=== PATIENT | male | born 1975 | race Caucasian/White ===

== ENCOUNTER 2016-08-28 19:23 | Emergency (ER) | payer MEDICAID ==
[~2016-08-28] VITALS: Ht 170.2 cm; Wt 86.3 kg
[~2016-08-28 19:23] MED LIST: AMO500 PO; CETI10CA PO; IBUP-1542 PO; IBUP800T25 PO; ONDA4TAB35 PO; ONDA4TAB8 PO; SODI44SP11 NASAL
[2016-08-28 19:27] VITALS: Ht 170.2 cm; Wt 86.3 kg
--- NOTE | 2016-08-28 21:40 | RADRPT ---
PROCEDURE: XR Hand. CLINICAL INDICATION: Numbness. Finger pain for 1 week. Attention fourth and fifth digits TECHNIQUE: PA, oblique and lateral views of the right hand were obtained. COMPARISON: None available. FINDINGS: Mineralization is within normal limits. No fracture or osseous lesion is identified. Joint spaces are preserved. Soft tissues are unremarkable. No radiopaque foreign body is present. RPTAT:HJJR IMPRESSION: Unremarkable right hand series. Physician Randall Date Time Electronically viewed and signed by Lorenzo Schrader Physician on 08/28/2016 21:39 JR/
[2016-08-28] MEDS ORDERED: IBUP-1542 PO (21:48)
--- NOTE | 2016-08-28 21:55 | ERD ---
ER Documentation Chief Complaint Date/Time DATE: 08/28/16 TIME: 21:49 Chief Complaint RT HAND PAIN. DENIES CP OR SOB NO TRAUMA HPI Patient is a 40-year-old male who presents to the emergency department with right right hand pain 2 weeks. Patient states the pain is primarily in the distal aspect of his fourth and fifth digits. Patient states that the pain is constant, currently 9 out of 10. Patient has noted some swelling in the DIP joints and states that he "feels bumps" in these areas. Patient denies taking any ibuprofen. Patient states he occasionally has some numbness in the distal aspect of the fourth and fifth digits his right hand. Patient is able to move all his fingers without any difficulty. Denies any fever, chills, nausea, vomiting, chest pain, shortness of breath. 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 Patient denies any trauma. ROS All systems reviewed and are negative except as per history of present illness. Medications Home Meds Active Scripts Ibuprofen* (Motrin*) 600 Mg Tab, 600 MG PO Q6, #30 TAB Prov:NABILA GUTIERREZ PA-C 08/28/16 Cetirizine Hcl* (Zyrtec*) 10 Mg Capsule, 10 MG PO DAILY, #30 TAB.CHEW Prov:MARY MONTGOMERY NP 05/31/16 Ibuprofen* (Motrin*) 600 Mg Tab, 600 MG PO Q6H Y for PAIN AND OR ELEVATED TEMP, #30 TAB Prov:MARY MONTGOMERY NP 05/31/16 Amoxicillin* (Amoxicillin*) 500 Mg Cap, 500 MG PO TID for 10 Days, CAP Prov:MAYR MONTGOMERY NP 05/31/16 Sodium Chloride (Saline Nasal [place]) 45 Ml [place], 2 SPRAYS NASAL Q2H Y for NASAL CONGESTION, #1 BOTTLE Prov:DONIS POSADA. ALLIED HEALTH TEACHER 07/06/15 Ibuprofen* (Motrin*) 800 Mg Tab, 800 MG PO Q6H Y for PAIN AND OR ELEVATED TEMP, #30 TAB Prov:DONIS POSADA. ALLIED HEALTH TEACHER 07/06/15 Ibuprofen* (Motrin*) 600 Mg Tab, 600 MG PO Q8, #12 Prov:ZAHRA CARDOZA DO 03/20/15 Ondansetron Hcl* (Zofran*) 4 Mg Tablet, 4 MG PO Q8H Y for NAUSEA AND/OR VOMITING , #10 TAB Prov:ZAHRA CARDOZA DO 03/20/15 Ondansetron Hcl* (Zofran* ODT) 4 mg -ODT Tab.disper, 4 MG PO Q6 Y for NAUSEA AND /OR VOMITING, #10 TAB Prov:JHONY MARTE 12/20/14 Ibuprofen* (Motrin*) 800 Mg Tab, 800 MG PO Q6, #30 TAB Prov:JHONY MARTE 12/20/14 Allergies Allergies: Coded Allergies: No Known Allergy (Unverified , 03/20/15) PMhx/Soc Medical and Surgical Hx: pt denies Medical Hx History of Surgery: Yes (L ankle sx) Anesthesia Reaction: No Hx Neurological Disorder: No Hx Respiratory Disorders: No Hx Cardiac Disorders: No Hx Psychiatric Problems: No Hx Miscellaneous Medical Probl: No Hx Alcohol Use: No Hx Substance Use: No Hx Tobacco Use: No Physical Exam Vitals Vital Signs Date Time Temp Pulse Resp B/P Pulse Ox O2 Delivery O2 Flow Rate FiO2 08/28/16 22:28 98.3 88 16 121/66 98 Room Air 08/28/16 19:27 98.1 58 18 113/59 98 Physical Exam GENERAL: Well-developed, well-nourished male. Appears in no acute distress. HEAD: Normocephalic, atraumatic. EYES: Pupils are equally reactive bilaterally. EOMs grossly intact. No conjunctival erythema. ENT: Moist mucous membranes. No uvula deviation. No kissing tonsils. NECK: Supple. No meningismus. Normal range of motion of the neck. LUNG: Clear to auscultation bilaterally. No rhonchi, wheezing, rales or coarse breath sounds. HEART: Regular rate and rhythm. No murmurs, rubs or gallops. ABDOMEN: No scars, ecchymosis or rashes noted. Soft, nontender, and nondistended. Positive bowel sounds in all four quadrants. No rebound tenderness , no guarding. (-) McBurney's point tenderness. No CVA tenderness. BACK: No midline tenderness. EXTREMITIES: Equal pulses bilaterally. No peripheral clubbing, cyanosis or edema. No unilateral leg swelling. NEUROLOGIC: Alert and oriented. Moving all four extremities without any difficulty. Normal speech. Steady gait. SKIN: Normal color. Warm and dry. No rashes or lesions. RIGHT HAND: No deformity, erythema, ecchymosis. + Heberden nodes palpated of the 4th and 5th digits. Tender to palpation of these nodes. Skin intact. No bursal swelling. Full ROM of all fingers. Sensation intact to light touch. Neurovascularly intact. (Able to give thumbs up, make an ok sign, cross digits 2 and 3, thumb to pinky opposition. 2+ RP.) No snuffbox tenderness. Nontender region of the wrist, forearm. Normal range of motion of the shoulder, elbow and wrist. Procedures/MDM ED COURSE: The patient was stable throughout ED course. I kept the patient and/or family informed of laboratory and diagnostic imaging results throughout the ED course. DIAGNOSTIC IMAGING: Read by radiologist. DIAGNOSTIC IMAGING REPORT Patient: NAYE THORNTON : 1975 Age: 40 Sex: M MR #: [id number] DOS: 08/28/162005 Ordering MD: NABILA GUTIERREZ PA-C Location: [facility] Room/Bed: PROCEDURE: XR Hand. CLINICAL INDICATION: Numbness. Finger pain for 1 week. Attention fourth and fifth digits TECHNIQUE: PA, oblique and lateral views of the right hand were obtained. COMPARISON: None available. FINDINGS: Mineralization is within normal limits. No fracture or osseous lesion is identified. Joint spaces are preserved. Soft tissues are unremarkable. No radiopaque foreign body is present. RPTAT:HJJR IMPRESSION: Unremarkable right hand series. Physician Randall Date Time Electronically viewed and signed by Physician Randall on 08/28/2016 21:39 JR/ CC: NABILA GUTIERREZ PA-C MEDICAL DECISION MAKING: This is a 40-year-old male who presents with pain of his right hand. Pain is primarily in the 4th and 5th digits over the DIP joints. Vital signs were reviewed. Patient was afebrile. Right hand XR was unremarkable. Given these findings, the patients presentation is most consistent with finger pain. Given presence of Heberden's nodes and frequent use of hands given that patient is a chef's assistant, patient may have osteoarthritis.I have a much lower clinical concern for dislocation, carpal fracture, scaphoid fracture, metacarpal fracture, phalanx fracture, Boxer's fracture, trigger finger, jammed finger, subungual hematoma, osteomyelitis or compartment syndrome. Unable to rule out rheumatoid arthritis at this time. PRESCRIPTIONS: Ibuprofen DISCHARGE: At this time, patient is stable for discharge and outpatient management. RICE therapy and ROM exercises were advised to avoid stiffness. I have instructed the patient to follow-up with his/her primary care physician in 1-2 days. I have discussed with the patient the possibility of needing to see an orthopedics pediatric physician/ pearl fisherman for further workup and imaging if the pain persists. I have instructed the patient to promptly return to the ER for any new or worsening symptoms including increased pain, swelling, redness, warmth or fever. The patient and/or family expressed understanding of and agreement with this plan. All questions were answered. Home care instructions were provided. Departure Diagnosis: Primary Impression: Finger pain, right Condition: Stable Patient Instructions: Sprain Finger Referrals: [facility] YOU HAVE RECEIVED A MEDICAL SCREENING EXAM AND THE RESULTS INDICATE THAT YOU DO NOT HAVE A CONDITION THAT REQUIRES URGENT TREATMENT IN THE EMERGENCY DEPARTMENT. FURTHER EVALUATION AND TREATMENT OF YOUR CONDITION CAN WAIT UNTIL YOU ARE SEEN IN YOUR DOCTORS OFFICE WITHIN THE NEXT 1-2 DAYS. IT IS YOUR RESPONSIBILITY TO MAKE AN APPOINTMENT FOR FOLOW-UP CARE. IF YOU HAVE A PRIMARY DOCTOR --you should call your primary doctor and schedule an appointment IF YOU DO NOT HAVE A PRIMARY DOCTOR YOU CAN CALL OUR PHYSICIAN REFERRAL HOTLINE AT IF YOU CAN NOT AFFORD TO SEE A PHYSICIAN YOU CAN CHOSE FROM THE FOLLOWING [facility] [address] [facility]. [facility] [address] [facility]. [facility] [address] [facility]. [facility] [address] [facility]. [facility] [address] [facility]. [facility]. [address] [facility]. [facility] YOU HAVE RECEIVED A MEDICAL SCREENING EXAM AND THE RESULTS INDICATE THAT YOU DO NOT HAVE A CONDITION THAT REQUIRES URGENT TREATMENT IN THE EMERGENCY DEPARTMENT. FURTHER EVALUATION AND TREATMENT OF YOUR CONDITION CAN WAIT UNTIL YOU ARE SEEN IN YOUR DOCTORS OFFICE WITHIN THE NEXT 1-2 DAYS. IT IS YOUR RESPONSIBILITY TO MAKE AN APPOINTMENT FOR FOLOW-UP CARE. IF YOU HAVE A PRIMARY DOCTOR --you should call your primary doctor and schedule and appointment IF YOU DO NOT HAVE A PRIMARY DOCTOR YOU CAN CALL OUR PHYSICIAN REFERRAL HOTLINE AT . IF YOU CAN NOT AFFORD TO SEE A PHYSICIAN YOU CAN CHOSE FROM THE FOLLOWING [facility] INSTITUTIONS: [facility] [address] [place] [address] [facility] [address] [place], [place] [id number] [place] [address] [address] [place] [address] [facility] Hours: Mon-Fri 9:00 AM - 5:00 PM Additional Instructions: Call your primary care doctor TOMORROW for an appointment during the next 1-2 days.See the doctor sooner or return here if your condition worsens before your appointment time. NABILA GUTIERREZ PA-C Aug 28, 2016 21:55 NABILA GUTIERREZ PA-C Aug 28, 2016 21:55
[2016-08-28 22:28] VITALS: BP 121/66; PULSE 88; RESP 16; TEMP 98.3
== END 2016-08-28 22:36 | disposition home or self-care (01) ==
LOC: FTE 19:23
DX: M79.644 Pain in right finger(s) (principal)
CPT/HCPCS: 73130; Z7502

== ENCOUNTER 2016-10-15 20:48 | Emergency (ER) | payer MEDICAID ==
[~2016-10-15] VITALS: Ht 157.5 cm; Wt 90.0 kg
[2016-10-15 20:53] VITALS: Ht 157.5 cm; Wt 90.0 kg
[2016-10-15] MEDS ORDERED: NAPR-688 PO (22:07)
[2016-10-15] MEDS ORDERED: AMOX1TAB10 PO (22:07)
--- NOTE | 2016-10-15 22:14 | ERD ---
ER Documentation Chief Complaint Date/Time DATE: 10/15/16 TIME: 22:11 Chief Complaint right ear pain and sore throat x 4 days HPI 40-year-old male comes in for progressive right ear discomfort and mild decrease hearing is been going on for several days. He also has a sore throat. He was previously treated with amoxicillin which did not have any effect. He denies any fevers or chills. Is stable to eat drink and swallow. He has no nausea vomiting or fevers. Is otherwise healthy with no medical problems. ROS All systems reviewed and are negative except as per history of present illness. Medications Home Meds Active Scripts Naproxen* (Naproxen*) 500 Mg Tablet, 500 MG PO BID Y for PAIN, #14 TAB Prov:LULIHARINIHERNESTO GRAF 10/15/16 Amoxicillin/Potassium Clav (Amox-Clav 875-125 mg Tablet) 875-125 mg Tab, 1 TAB PO BID, #20 TAB Prov:LULIHARINI DO 10/15/16 Ibuprofen* (Motrin*) 600 Mg Tab, 600 MG PO Q6, #30 TAB Prov:NABILA GUTIERREZ PA-C 08/28/16 Cetirizine Hcl* (Zyrtec*) 10 Mg Capsule, 10 MG PO DAILY, #30 TAB.CHEW Prov:MARY MONTGOMERY NP 05/31/16 Ibuprofen* (Motrin*) 600 Mg Tab, 600 MG PO Q6H Y for PAIN AND OR ELEVATED TEMP, #30 TAB Prov:MARY MONTGOMERY NP 05/31/16 Amoxicillin* (Amoxicillin*) 500 Mg Cap, 500 MG PO TID for 10 Days, CAP Prov:MARY MONTGOMERY NP 05/31/16 Sodium Chloride (Saline Nasal [place]) 45 Ml [place], 2 SPRAYS NASAL Q2H Y for NASAL CONGESTION, #1 BOTTLE Prov:DONIS POSADA NP 07/06/15 Ibuprofen* (Motrin*) 800 Mg Tab, 800 MG PO Q6H Y for PAIN AND OR ELEVATED TEMP, #30 TAB Prov:DONIS POSADA. MIDDLE SCHOOL TECHNOLOGY TEACHER 07/06/15 Ibuprofen* (Motrin*) 600 Mg Tab, 600 MG PO Q8, #12 Prov:ZAHRA CARDOZA DO 03/20/15 Ondansetron Hcl* (Zofran*) 4 Mg Tablet, 4 MG PO Q8H Y for NAUSEA AND/OR VOMITING , #10 TAB Prov:ZAHRA CARDOZA DO 03/20/15 Ondansetron Hcl* (Zofran* ODT) 4 mg -ODT Tab.disper, 4 MG PO Q6 Y for NAUSEA AND /OR VOMITING, #10 TAB Prov:JHONY MARTE 12/20/14 Ibuprofen* (Motrin*) 800 Mg Tab, 800 MG PO Q6, #30 TAB Prov:JHONY MARTE 12/20/14 Allergies Allergies: Coded Allergies: No Known Allergy (Unverified , 03/20/15) PMhx/Soc Medical and Surgical Hx: pt denies Medical Hx History of Surgery: Yes (L ankle sx) Anesthesia Reaction: No Hx Neurological Disorder: No Hx Respiratory Disorders: No Hx Cardiac Disorders: No Hx Psychiatric Problems: No Hx Miscellaneous Medical Probl: No Hx Alcohol Use: No Hx Substance Use: No Hx Tobacco Use: No Smoking Status: Unknown if ever smoked Physical Exam Vitals Vital Signs Date Time Temp Pulse Resp B/P Pulse Ox O2 Delivery O2 Flow Rate FiO2 10/15/16 20:53 98.2 76 20 118/61 94 Physical Exam Const: [] No distress Eyes: Normal Conjunctiva ENT: Normal External Ears, Nose and Mouth. Oropharynx with swollen tonsils grade 2. No symmetrical swelling or depression of soft palate. No erythema or exudates. Right tympanic membrane with small white density with slight injected vessels upon it. Around this small white density in the central of the tympanic membrane there is a normal appearance of tympanic membranes with good cone of light. Neck: Full range of motion..~ No meningismus. Neur: Awake and alert and oriented 3, no focal deficits Procedures/MDM Patient has enlarged tonsils, although he believed he had them removed, as well as a small area of scarring or increased density in the middle of the tympanic membrane. Did not have the exact appearance of an infection however I am going to give the patient Augmentin as he does have pharyngitis as well and has already failed amoxicillin. We have most important thing for him, as I explained to the whole family is that he see an ENT doctor. Instructed him to both follow-up through his primary care doctor which I provided him a list of local clinics in the area or see Dr. Eastman, ENT, if possible. Departure Diagnosis: Primary Impression: Otitis media Additional Impression: Pharyngitis Condition: Stable Patient Instructions: Otitis Media, Abx Tx (Adult), Pharyngitis, Report Pending Referrals: [facility] YOU HAVE RECEIVED A MEDICAL SCREENING EXAM AND THE RESULTS INDICATE THAT YOU DO NOT HAVE A CONDITION THAT REQUIRES URGENT TREATMENT IN THE EMERGENCY DEPARTMENT. FURTHER EVALUATION AND TREATMENT OF YOUR CONDITION CAN WAIT UNTIL YOU ARE SEEN IN YOUR DOCTORS OFFICE WITHIN THE NEXT 1-2 DAYS. IT IS YOUR RESPONSIBILITY TO MAKE AN APPOINTMENT FOR FOLOW-UP CARE. IF YOU HAVE A PRIMARY DOCTOR --you should call your primary doctor and schedule an appointment IF YOU DO NOT HAVE A PRIMARY DOCTOR YOU CAN CALL OUR PHYSICIAN REFERRAL HOTLINE AT IF YOU CAN NOT AFFORD TO SEE A PHYSICIAN YOU CAN CHOSE FROM THE FOLLOWING [facility] [address] [facility] [address] [facility]. [facility] [address] [facility] [address] [facility] [address] [facility] [address] [facility]. [facility]. [address] Additional Instructions: Llame al doctor MAANA y oliva theron SCOTT PARA DENTRO DE 2-3 GODFREY. Consigue un referral para un doctor de ENT entre theron semana si es possible. Dgale a la secretaria que nosotros le instruimos hacer esta scott.Avise o llame si kimbrough condicin se empeora antes de la scott. Regresa aqui si peor o no mejor. HARINI ROCKWELL DO Oct 15, 2016 22:14
== END 2016-10-15 22:37 | disposition home or self-care (01) ==
LOC: FTE 20:48
DX: H66.91 Otitis media, unspecified, right ear (principal); J02.9 Acute pharyngitis, unspecified
CPT/HCPCS: 99283

== ENCOUNTER 2016-11-28 21:21 | Emergency (ER) | payer MEDICAID ==
[~2016-11-28] VITALS: Ht 167.6 cm; Wt 94.1 kg
[~2016-11-28 21:21] MED LIST changes: +AMOX1TAB10 PO; +NAPR-688 PO
[2016-11-28 21:30] VITALS: Ht 167.6 cm; Wt 94.1 kg
[2016-11-28] MEDS ORDERED: AMOX1TAB10 PO (23:59)
[2016-11-28] MEDS ORDERED: BENZ100C70 PO (23:59)
[2016-11-28] MEDS ORDERED: SODI30SP2 NS (23:59)
[2016-11-29] MEDS ORDERED: ACET500C5 PO
--- NOTE | 2016-11-29 00:06 | ERD ---
ER Documentation Chief Complaint Date/Time DATE: 11/29/16 TIME: 00:03 Chief Complaint C/O RT EAR PAIN X4 DAYS +ST/FEVER AND CARRION HPI Patient is a 41-year-old male with no past medical history who presents to the ED with right ear pain, sore throat, cough and congestion 3 days. He states that he has had these similar symptoms in the past and is usually diagnosed with an ear infection. He states that his last infection was over a month ago. States that he has taken Tylenol for his symptoms with minimal relief. States that he has a mild headache similar to what he has experienced in the past. Denies dizziness, neck pain or neck stiffness. Denies abdominal pain, nausea, vomiting or diarrhea. Denies chest pain or shortness of breath ROS All systems reviewed and are negative except as per history of present illness. Medications Home Meds Active Scripts Acetaminophen* (Tylophen*) 500 Mg Capsule, 1 CAP PO Q6H Y for PAIN AND OR ELEVATED TEMP, #20 CAP Prov:DIMITRI FAJARDO PA-C 11/29/16 Sodium Chloride (Saline Nasal [place]) 30 Ml [place], 30 ML NS BID for 14 Days, SPRAY Prov:DIMITRI FAJARDO PA-C 11/28/16 Benzonatate* (Tessalon Perle*) 100 Mg Capsule, 100 MG PO Q8H Y for COUGH for 14 Days, CAP Prov:DIMITRI FAJARDO PA-C 11/28/16 Amoxicillin/Potassium Clav (Amox-Clav 875-125 mg Tablet) 875-125 mg Tab, 1 TAB PO BID for 7 Days, #14 TAB Prov:DIMITRI FAJARDO PA-C 11/28/16 Naproxen* (Naproxen*) 500 Mg Tablet, 500 MG PO BID Y for PAIN, #14 TAB Prov:GREENHARINI DO 10/15/16 Amoxicillin/Potassium Clav (Amox-Clav 875-125 mg Tablet) 875-125 mg Tab, 1 TAB PO BID, #20 TAB Prov:HARINI ROCKWELL DO 10/15/16 Ibuprofen* (Motrin*) 600 Mg Tab, 600 MG PO Q6, #30 TAB Prov:NABILA GUTIERREZ PA-C 08/28/16 Cetirizine Hcl* (Zyrtec*) 10 Mg Capsule, 10 MG PO DAILY, #30 TAB.CHEW Prov:MARY MONTGOMERY WAREHOUSE SELECTOR 05/31/16 Ibuprofen* (Motrin*) 600 Mg Tab, 600 MG PO Q6H Y for PAIN AND OR ELEVATED TEMP, #30 TAB Prov:MARY MONTGOMERY. WAREHOUSE SELECTOR 05/31/16 Amoxicillin* (Amoxicillin*) 500 Mg Cap, 500 MG PO TID for 10 Days, CAP Prov:MARY MONTGOMERY WAREHOUSE SELECTOR 05/31/16 Sodium Chloride (Saline Nasal [place]) 45 Ml [place], 2 SPRAYS NASAL Q2H Y for NASAL CONGESTION, #1 BOTTLE Prov:DONIS POSADA. WAREHOUSE SELECTOR 07/06/15 Ibuprofen* (Motrin*) 800 Mg Tab, 800 MG PO Q6H Y for PAIN AND OR ELEVATED TEMP, #30 TAB Prov:DONIS POSADA. WAREHOUSE SELECTOR 07/06/15 Ibuprofen* (Motrin*) 600 Mg Tab, 600 MG PO Q8, #12 Prov:AZHRA CARDOZA DO 03/20/15 Ondansetron Hcl* (Zofran*) 4 Mg Tablet, 4 MG PO Q8H Y for NAUSEA AND/OR VOMITING , #10 TAB Prov:ZAHRA CARDOZA DO 03/20/15 Ondansetron Hcl* (Zofran* ODT) 4 mg -ODT Tab.disper, 4 MG PO Q6 Y for NAUSEA AND /OR VOMITING, #10 TAB Prov:JHONY MARTE 12/20/14 Ibuprofen* (Motrin*) 800 Mg Tab, 800 MG PO Q6, #30 TAB Prov:JHONY MARTE 12/20/14 Allergies Allergies: Coded Allergies: No Known Allergy (Unverified , 03/20/15) PMhx/Soc History of Surgery: Yes (L ankle sx) Anesthesia Reaction: No Hx Neurological Disorder: No Hx Respiratory Disorders: No Hx Cardiac Disorders: No Hx Psychiatric Problems: No Hx Miscellaneous Medical Probl: No Hx Alcohol Use: No Hx Substance Use: No Hx Tobacco Use: No Smoking Status: Never smoker FmHx Family History: No coronary disease, No diabetes, No other Physical Exam Vitals Vital Signs Date Time Temp Pulse Resp B/P Pulse Ox O2 Delivery O2 Flow Rate FiO2 11/28/16 21:30 97.8 72 18 112/69 97 Physical Exam GENERAL: Well-developed, well-nourished male. Appears in no acute distress. HEAD: Normocephalic, atraumatic. EYES: Pupils are equally reactive bilaterally. EOMs grossly intact. No conjunctival erythema. ENT: Moist mucous membranes. No uvula deviation. No kissing tonsils. No exudates. Right TM is bulging with mild drainage. No mastoid tenderness. No erythema NECK: Supple. No lymphadenopathy or thyromegaly. No meningismus. negative kernig. negative brudinski. LUNG: Clear to auscultation bilaterally. No rhonchi, wheezing, rales or coarse breath sounds. HEART: Regular rate and rhythm. No murmurs, rubs or gallops. Extremities: Equal pulses bilaterally. No peripheral clubbing, cyanosis or edema. No unilateral leg swelling. NEUROLOGIC: Alert and oriented. Moving all four extremities. 5/5 strength in all extremities. Normal speech. Steady gait. SKIN: Normal color. Warm and dry. No rashes or lesions. Capillary refill < 2 seconds Procedures/MDM ER COURSE: I kept the patient and/or family informed of laboratory and diagnostic imaging results throughout the emergency room course. MEDICAL DECISION MAKING: This is a 41-year-old male who presents with right ear pain, sore throat, congestion 3 days. Vital signs were reviewed. Patient is afebrile. Patient is not hypoxic. Patient is nontoxic or ill-appearing. Patient has otitis media and URI of viral etiology. Low suspicion for otitis externa, malignant otitis externa, TM perforation, mastoiditis. Low suspicion for pneumonia, PE, pneumothorax, ACS, epiglottitis, obstruction, TB, pertussis, meningitis, sepsis. Patient does not show signs of respiratory distress. Patient speaking in full sentences. DISCHARGE: At this time, patient is stable for discharge and outpatient management with no new complaints during the ER course. Patient was sent home with Augmentin, Tessalon Perles, saline nasal spray and Tylenol and to follow-up with an ENT specialist. Names of ENT specialist were given to patient.. Patient will be discharged home with instructions to recheck for new or worsening symptoms such as fever, nausea, weakness, LOC and to follow up with primary care in the next 1 -2 days. Patient was advised to return to the ER for any new or worsening symptoms. Plan was discussed and patient and/or family understands and agrees. Home instructions were given. Departure Diagnosis: Primary Impression: Otitis media Otitis media type: unspecified Laterality: right Chronicity: unspecified Qualified Code: H66.91 - Right otitis media, unspecified chronicity, unspecified otitis media type Additional Impression: URI, acute Condition: Stable Patient Instructions: Otitis Media, Abx Tx (Adult) Referrals: RADHA BULLOCK MD, ALI R MD PLEET, LAWRENCE Additional Instructions: Llame al doctor MAANA y oliva theron SCOTT PARA DENTRO DE 1-2 GODFREY.Dgale a la secretaria que nosotros le instruimos hacer esta scott.Avise o llame si kimbrough condicin se empeora antes de la scott. Regresa aqui si peor o no mejor. DIMITRI FAJARDO PA-C Nov 29, 2016 00:06
== END 2016-11-29 00:03 | disposition home or self-care (01) ==
LOC: FTE 21:21
DX: H66.91 Otitis media, unspecified, right ear (principal); J06.9 Acute upper respiratory infection, unspecified
CPT/HCPCS: 99284

== ENCOUNTER 2017-06-20 11:08 | Emergency (ER) | END 2017-06-20 13:23 | disposition home or self-care (01) ==

== ENCOUNTER 2017-12-11 22:22 | Inpatient (IN) | END 2017-12-14 14:56 | disposition home or self-care (01) | DRG 153 ==

== ENCOUNTER 2018-10-02 19:16 | Emergency (ER) | payer MEDICAID ==
[~2018-10-02] VITALS: Ht 172.7 cm; Wt 93.0 kg
[~2018-10-02 19:16] MED LIST changes: -AMO500 PO; +ASPI-831 PO; +ATOR20TA65 PO; -CETI10CA PO; +CLIN300C10 PO; +FER325 PO; -IBUP-1542 PO; -IBUP800T25 PO; -NAPR-688 PO; -ONDA4TAB35 PO; -ONDA4TAB8 PO; -SODI44SP11 NASAL
[2018-10-02 19:19] VITALS: BP 129/59; PULSE 82; RESP 19; Ht 172.7 cm; Wt 93.0 kg
[2018-10-02] MEDS ORDERED: KETOROLAC 60 MG INJ IM STA (20:55)
--- NOTE | 2018-10-02 21:17 | ERD ---
ER Documentation Chief Complaint Chief Complaint RIGHT KNEE PAIN [id number] HPI 42-year-old male presents with complaint of right knee pain for the past week. States that a keg of beer fell on his knee. He is able to ambulate. . Denies any treatments. States the pain is sort of palpation and movement. States the pain is currently 9 out of 10. Denies any numbness or tingling. Has allergies. Denies medical problems. ROS All systems reviewed and are negative except as per history of present illness. Medications Home Meds Active Scripts Ferrous Sulfate* (Ferrous Sulfate*) 325 Mg Tabec, 325 MG PO BID, #60 TAB 1 Refill Prov:SHARMAINE CASTILLO 12/14/17 Aspirin (Aspirin) 81 Mg Chew, 81 MG PO DAILY for 30 Days, #30 TAB 1 Refill Prov:SHARMAINE CASTILLO 12/14/17 Atorvastatin Calcium (Atorvastatin Calcium) 20 Mg Tablet, 20 MG PO QHS for 30 Days, #30 TAB 1 Refill Prov:SHARMAINE CASTILLO 12/14/17 Clindamycin Hcl* (Clindamycin Hcl*) 300 Mg Capsule, 300 MG PO Q8 for 10 Days, #30 CAP Prov:SHARMAINE CASTILLO 12/14/17 Amoxicillin/Potassium Clav (Amox-Clav 875-125 mg Tablet) 875-125 mg Tab, 875 MG PO Q12 for 10 Days, #20 TAB Prov:SHARMAINE CASTILLO 12/14/17 Allergies Allergies: Coded Allergies: No Known Allergy (Unverified , 12/11/17) PMhx/Soc History of Surgery: Yes (L Ankle) Anesthesia Reaction: No Hx Neurological Disorder: No Hx Respiratory Disorders: No Hx Cardiac Disorders: No Hx Psychiatric Problems: No Hx Miscellaneous Medical Probl: Yes (see PT note) Hx Alcohol Use: No Hx Substance Use: No Hx Tobacco Use: No Smoking Status: Never smoker FmHx Family History: No diabetes, No coronary disease, No other Physical Exam Vitals Vital Signs Date Temp Pulse Resp B/P (MAP) Pulse Ox O2 O2 Flow FiO2 Time Delivery Rate 10/02/18 98.3 82 19 129/59 97 19:19 (82) Physical Exam Const: No acute distress Head: Atraumatic Eyes: Normal Conjunctiva ENT: Normal External Ears, Nose and Mouth. Neck: Full range of motion. No meningismus. Resp: Clear to auscultation bilaterally Cardio: Regular rate and rhythm, no murmurs Abd: Soft, non tender, non distended. Normal bowel sounds Skin: No petechiae or rashes Back: No midline or flank tenderness Ext: Tenderness to palpation over the lateral aspect of left patella. There is no edema, erythema, or ecchymosis noted. No bony deformity noted. Overlying skin is intact. There is no pallor or cyanosis. Compartments are soft and warm. Distal sensation is intact. Distal range of motion movement is intact. Distal pulses are intact. Neur: Awake and alert Psych: Normal Mood and Affect Results 24 hrs Current Medications Medications Dose Sig/[place]ville Start Time Status Last (Trade) Ordered Route PRN Stop Time Admin Dose Reason Admin Ketorolac 60 mg ONCE STAT 10/02/18 DC 10/02/18 Tromethamine IM 20:55 10/02/18 20:59 (Toradol) 20:56 Procedures/MDM DIAGNOSTIC IMAGING REPORT Patient: NAYE PATHAK : 1975 Age: 42 Sex: M MR #: [id number] DOS: 10/02/182054 Ordering MD: VANCE MATHEWS Location: [facility] Room/Bed: PROCEDURE: Left knee radiographs. CLINICAL INDICATION: Left knee pain. TECHNIQUE: Three views. Frontal, lateral, and oblique. COMPARISON: No prior studies are available for comparison. FINDINGS: There is no fracture or dislocation. The soft tissues are normal. There are degenerative changes with osteophytes arising from all 3 joint compartment margins. There is medial joint compartment narrowing. There is no lytic or blastic lesion. There is no radiopaque foreign body. IMPRESSION: 1. Moderate degenerative changes. 2. Otherwise unremarkable images of the left knee. RPTAT: QQ .Ric Oakley MD, MD Date Time Electronically viewed and signed by .Ric Oakley MD, on 10/02/2018 21:25 .R/ CC: VANCE MATHEWS [id number] X-rays were taken results within normal limits. Patient presentation is consistent with contusion of knee. I have low suspicion for neurovascular compromise, compartment syndrome, fracture, osteomyelitis, septic joint, or other emergent condition. Raudel bandage applied. splint Assessment: Neurovascularly intact post splint placement with good fit. Patient discharged with Rx for ibuprofen. Patient discharged with strict ER precautions. Patient advised to follow up with PMD. All questions answered at discharge. Departure Diagnosis: Primary Impression: Knee injury Encounter type: initial encounter Laterality: right Qualified Codes: S89.91XA - Unspecified injury of right lower leg, initial encounter Additional Impression: Knee pain Chronicity: acute Laterality: right Qualified Codes: M25.561 - Pain in right knee Condition: Stable VANCE MATHEWS Oct 02, 2018 21:17
[2018-10-02] MEDS ORDERED: IBUP-1542 PO (21:59)
== END 2018-10-02 22:16 | disposition home or self-care (01) ==
LOC: FTE 19:16
DX: S89.91XA Unspecified injury of right lower leg, initial encounter (principal); W20.8XXA Other cause of strike by thrown, projected or falling object, initial encounter; Y92.9 Unspecified place or not applicable; Z79.82 Long term (current) use of aspirin
CPT/HCPCS: 73562; 96372; J1885; Z7502

== ENCOUNTER 2018-11-09 23:00 | Emergency (ER) | payer MEDICAID ==
[~2018-11-09] VITALS: Ht 170.2 cm; Wt 92.5 kg
[~2018-11-09 23:00] MED LIST changes: +IBUP-1542 PO
[2018-11-09 23:08] VITALS: BP 149/66; PULSE 87; RESP 18; Ht 170.2 cm; Wt 92.5 kg
[2018-11-10] MEDS ORDERED: morphine 4 MG/ML VIAL IM STA (02:48)
--- NOTE | 2018-11-10 02:48 | ERD ---
ER Documentation Chief Complaint Chief Complaint L knee pain x4 days, worse today. no injury HPI This is a 42-year-old male who presents to emerge department with complaints of left knee pain that is nontraumatic for about 4 days. Denies any injury. Denies headache, head injury, loss of consciousness, dizziness, neck pain, neck stiffness, throat pain, difficulty swallowing, difficulty breathing lying flat, shoulder pain, chest pain, back pain, abdominal pain, nausea, vomiting, constipation, diarrhea, urinary symptoms, loss of bowel and bladder control, trauma, injury, falls, difficulty walking due to pain, numbness or tingling sensation, calf pain, recent travel, recent major surgery in the last 3 weeks, calf pain, recent long travel, recent exposure to any illness, recent antibiotic use in the last 3 months, fever, chills, seizures. Past medical history: Surgical history: Social: Denies smoking, use of alcoholic beverages, use of illegal drugs. ROS All systems reviewed and are negative except as per history of present illness. Medications Home Meds Active Scripts Tramadol HCl (Tramadol HCl) 50 Mg Tablet, 50 MG PO Q4 PRN for SEVERE PAIN LEVEL 7-10, #5 TAB Prov:GAVI FITZGERALD 11/10/18 Ibuprofen* (Motrin*) 800 Mg Tab, 800 MG PO Q6H PRN for PAIN AND OR ELEVATED TEMP, #30 TAB Prov:MINGOGAVI VASQUEZ F 11/10/18 Ibuprofen* (Motrin*) 600 Mg Tab, 600 MG PO Q6 for knee pain, #30 TAB Prov:VANCE MATHEWS 10/02/18 Ferrous Sulfate* (Ferrous Sulfate*) 325 Mg Tabec, 325 MG PO BID, #60 TAB 1 Refill Prov:SHARMAINE CASTILLO 12/14/17 Aspirin (Aspirin) 81 Mg Chew, 81 MG PO DAILY for 30 Days, #30 TAB 1 Refill Prov:SHARMAINE CASTILLO 12/14/17 Atorvastatin Calcium (Atorvastatin Calcium) 20 Mg Tablet, 20 MG PO QHS for 30 Days, #30 TAB 1 Refill Prov:SHARMAINE CASTILLO 12/14/17 Clindamycin Hcl* (Clindamycin Hcl*) 300 Mg Capsule, 300 MG PO Q8 for 10 Days, #30 CAP Prov:SHARMAINE CASTILLO 12/14/17 Amoxicillin/Potassium Clav (Amox-Clav 875-125 mg Tablet) 875-125 mg Tab, 875 MG PO Q12 for 10 Days, #20 TAB Prov:SHARMAINE CASTILLO 12/14/17 Allergies Allergies: Coded Allergies: No Known Allergy (Unverified , 12/11/17) PMhx/Soc History of Surgery: Yes (L Ankle) Anesthesia Reaction: No Hx Neurological Disorder: No Hx Respiratory Disorders: No Hx Cardiac Disorders: No Hx Psychiatric Problems: No Hx Miscellaneous Medical Probl: Yes (see PT note) Hx Alcohol Use: No Hx Substance Use: No Hx Tobacco Use: No Smoking Status: Never smoker Physical Exam Vitals Physical Exam Const: No acute distress Head: Atraumatic Eyes: Normal Conjunctiva ENT: Normal External Ears, Nose and Mouth. Neck: Full range of motion. No meningismus. Resp: Clear to auscultation bilaterally Cardio: Regular rate and rhythm, no murmurs Abd: Soft, non tender, non distended. Normal bowel sounds Skin: No petechiae or rashes Back: No midline or flank tenderness Ext: No cyanosis, or edema. Left knee: Skin is not warm to touch. Mild swelling. No deformity. Has good and full range of motion. No calf tenderness to the left lower extremity. Left pedal pulses within normal limits. Capillary refill left lower extremity is less than 2 seconds. Bilateral hips are stable and unremarkable. Right lower extremity is unremarkable. No neurovascular deficit. Ambulatory with steady gait. Neur: Awake and alert. No neurological deficit. Psych: Normal Mood and Affect Results 24 hrs Current Medications Medications Dose Sig/[place] Start Time Status Last (Trade) Ordered Route PRN Stop Time Admin Dose Reason Admin Colchicine 1.2 mg ONCE ONCE 11/10/18 DC 11/10/18 (Colchicine) PO 03:00 03:15 11/10/18 03:01 Colchicine 0.6 mg ONCE ONCE 11/10/18 DC 11/10/18 ([place]icine) PO 03:00 04:16 11/10/18 03:01 Morphine 4 mg ONCE STAT 11/10/18 DC Sulfate IM 02:48 (morphine) 11/10/18 03:01 1 tab ONCE ONCE 11/10/18 DC 11/10/18 Acetaminophen PO 03:00 03:08 / 11/10/18 03:01 Hydrocodone Bitart ([place] ()) Procedures/MDM Diagnostic tests: Clinical exam. Offered diagnostic tests but patient strongly refused. Stated that he would like to be medicated and that he does not want to wait for the tests. Treatment: [place] p.o. Colchicine. Re-evaluation: Has good and full range of motion of left knee. Stated that he feels much this time and that he is ready to go home. No neurovascular deficit. Ambulatory with steady gait. Differential diagnosis I have low suspicion for displaced fracture, compartment syndrome, DVT, septic joint, severe effusion, patellar tendon rupture. Final diagnosis: Knee pain. Prescription: Motrin. Tramadol. Follow-up with PCP in the next 24-48 hours. PCP to do an MRI. PCP to refer patient to camp recreation specialist and/or drier transfer car operator. Come back here in the emergency department for any new symptoms or any worsening symptoms. All questions and concerns were answered. Patient and family members verbalized understanding and agreed with plan of care. Hemodynamically stable on discharge. Departure Diagnosis: Primary Impression: Knee pain Condition: Stable Additional Instructions: Follow-up with PCP in the next 24-48 hours. PCP to do an MRI. PCP to refer patient to camp recreation specialist and/or drier transfer car operator. Come back here in the emergency department for any new symptoms or any worsening symptoms. GAVI FITZGERALD November 10, 2018 02:48
[2018-11-10] MEDS ORDERED: HYDROCODONE/APAP (10/325) TAB PO ONE (03:00)
[2018-11-10] MEDS ORDERED: COLCHICINE 0.6 MG TAB PO ONE ×2 (03:00)
[2018-11-10] MEDS ORDERED: IBUP800T48 PO (03:08)
[2018-11-10] MEDS ORDERED: TRAM50TA2 PO (03:08)
== END 2018-11-10 04:20 | disposition home or self-care (01) ==
LOC: FTE 23:00
DX: M25.562 Pain in left knee (principal)
CPT/HCPCS: Z7502; Z7610; 99283